=== PATIENT | female | born 1965 | race Two or more races ===

== ENCOUNTER → 2017-03-08 | Outpatient (CLI) | payer OTHER | END | disposition home or self-care (01) | LOC: WOU 11:30 | PROVIDERS: ATTEND Podiatrist Foot & Ankle Surgery | DX: L97.421 Non-pressure chronic ulcer of left heel and midfoot limited to breakdown of skin (principal); G62.9 Polyneuropathy, unspecified; L60.0 Ingrowing nail; L03.032 Cellulitis of left toe; Z94.0 Kidney transplant status; Z94.83 Pancreas transplant status | CPT/HCPCS: 11042; 11730; A6402; J3490 ==